=== PATIENT | female | born 1985 | race Caucasian/White ===

== ENCOUNTER → 2019-05-16 13:49 | Outpatient (CLI) | payer OTHER, SELFPAY ==
--- NOTE | ~2019-05-16 | US_ITS ---
EXAMINATION: US OB follow up DATE: 05/16/2019 16:02 INDICATION: Small for gestational age. Third trimester. TECHNIQUE: Real-time ultrasound of the pelvis was performed. COMPARISON: Ultrasound 02/28/2019, 12/19/2018 FINDINGS: There is a single living fetus in vertex presentation. The placenta is anterior. heart rate is 126 beats per minute (bpm). The amniotic fluid index is 11.1 cm, which is normal. The following biometric data were obtained: Biparietal diameter (BPD): 7.8 cm; head circumference (HC): 28.7 cm; abdominal circumference (AC): 26 .5 cm; femur length (FL): 5.8 cm. These measurements are concordant. Estimated weight is 1620 g +/- 243 g, which correlates with 41st percentile when 07/18/19 is use d as estimated date of delivery. As single measurements, these parameters are each equal to the following estimated gestational ages w ith ranges of +/- 2 standard deviations: BPD: 31 weeks 2 days (28 weeks 1 days - 34 weeks 2 days). HC: 31 weeks 4 days (28 weeks 4 days - 34 weeks 4 days). AC: 30 weeks 4 days (27 weeks 5 days - 33 weeks 4 days). FL: 30 weeks 3 days (27 weeks 3 days - 33 weeks 2 days). estimated gestational age based solely on measurements from this exam is 31 weeks 0 days +/- 2 weeks 1 days. IMPRESSION: 1. Single living fetus in vertex presentation. 2. Estimated weight is 1620 g +/- 243 g, which correlates with 41st percentile when 07/18/19 is used as estimated date of delivery. Reviewed, dictated and finalized at location A. IMPRESSION: 1. Single living fetus in vertex presentation. 2. Estimated weight is 1620 g +/- 243 g, which correlates with 41st perc entile when 07/18/19 is used as estimated date of delivery.
== END ==
PROVIDERS: Visit Provider Nurse Practitioner
DX: O26.843 Uterine size-date discrepancy, third trimester (principal); Z3A.31 31 weeks gestation of pregnancy
CPT/HCPCS: 76816

== ENCOUNTER 2019-07-18 00:55 | Inpatient (IN) | payer OTHER, SELFPAY ==
[2019-07-18] VITALS (16 sets, daily range): BP systolic 93–126; BP diastolic 69–88; PULSE 58–114; RESP 16–18; TEMP 36.7–37.1; O2SAT 98–100; BMI 24.2
--- NOTE | 2019-07-18 00:55 | LDADM ---
This patient, Katherine Cox, was admitted to Labor/Delivery/Recovery 106 on 07/18/19 at 00:55. Plans for labor, pain management and were discussed with patient. Patient/family oriented to hospital policies and general routines including ID bracelet, bed and alarms, visiting hours, pain management, procedures, bathroom and other care routines, personal items, smoking policy, room service/diet and guest tray routines, security routines, and visiting hours. Patient/Family are encouraged to report perceived risks to care and to ask questions if they do not understand what they are told or what they should do. See OBIX for further documentation.
[2019-07-18 01:24] LABS: Basophils Percent Auto 0.4 % (0.2-1.2); Eosinophils Absolute Auto 0.1 K/mm3 (0-0.3); Eosinophils Percent Auto 1.1 % (0-4.4); Hemoglobin 13.2 g/dL (12.0-15.0); Immature Granulocyte Absolute 0.03 K/mm3 (0.00-0.031); Immature Granulocyte Percent A 0.4 % (0-0.5); Lymphocytes Absolute Auto 2.75 K/mm3 (0.9-3.2); Lymphocytes Percent Auto 33.9 % (18.3-44.2); Mean Corpuscular HGB Conc 33.8 g/dl (32-36); Mean Corpuscular Hemoglobin 34.1 pg (26-34); Mean Corpuscular Volume 100.8 fl (80-100); Mean Platelet Volume 10.5 fl (7.4-10.4); Monocytes Absolute Auto 0.7 K/mm3 (0.1-0.6); Monocytes Percent Auto 8.4 % (2.6-8.5); Neutrophils Absolute Auto 4.5 K/mm3 (1.3-6.7); Neutrophils Percent Auto 55.8 % (45.5-73.1); Platelet Count Result 185 k/mm3 (150-375); Red Blood Count 3.87 M/mm3 (4.2-5.4); Red Cell Distribution Width 12.2 % (11.5-14.5); White Blood Count 8.1 K/mm3 (4.5-10.0)
[2019-07-18] MEDS: LACTATED RINGERS 1,000 ML 125 ML IV CONT (01:28)
[2019-07-18] MEDS: AMPICILLIN 2 GM/NS 100 ML 2 GM/100 ML BAG IVPB (01:29)
[2019-07-18] MEDS: OXYTOCIN 30 UNITS/NS 500 ML 30 UNITS/500 ML BAG 999 UNITS IV CONT (01:55)
--- NOTE | 2019-07-18 02:02 | WPDOBADMIT ---
Obstetrics - Admit Note Admission Note: AROm clear fluid complete and zero station. record reviewed. No pertinent additions to the history and/or any subsequent changes in the physical findings that are not consistent with the expected course of the were found. Additions to the history and/or subsequent changes in the physical findings follow. None.
--- NOTE | 2019-07-18 02:04 | P.PCNOB_ITS ---
OB - Delivery Note Procedure Delivery date: 07/18/19 Procedure: Intrapartal events: None Induction method: none Delivery monitor: external FHT and external uterine Route of delivery: Laceration description: Perineal - 1st Degree Specimen: No Estimated blood loss (mL): 100 Anesthesia type: None Disposition: floor [place] [facility] Time of : 01:45 Weeks of gestation at delivery: 39 Infant gender: Male Weight (pounds): 7 Weight (ounces): 0 presentation: vertex position: Left Occiput Anterior Placenta delivery description: Spontaneous cord vessel description: 3 Vessels score one minute: 9 score five minutes: 9
[2019-07-18] MEDS: WITCH HAZEL 40 PADS 1 PAD TOPICAL (03:46)
[2019-07-18] MEDS: IBUPROFEN 600 MG TABLET PO ×3 (03:47→17:21)
[2019-07-18] MEDS: LANOLIN (LANSINOH) 7.5 GM CREAM 1 APPLIC TOPICAL (03:51)
--- NOTE | 2019-07-18 04:48 | PC.NURSE ---
This patient, Katherine Cox, was received from Labor and delivery on 07/18/19 at 0427. Personal belongings list checked and signed. Patient/family oriented to unit policies and routines
[2019-07-18] MEDS: MULTIVIT/MIN/PREN/FOL AC/IRON TABLET 1 TAB PO (08:48)
[2019-07-18] MEDS: DOCUSATE SODIUM 100 MG CAPSULE PO ×2 (08:48→17:21)
[2019-07-18] MEDS: BENZOCAINE 20% AER SPR (*SP) 56 GM CAN 1 SPRAY TOPICAL (08:48)
--- NOTE | 2019-07-18 10:55 | PC.NURSE ---
PT introductions made and plan of care discussed per post , pain management, breast feeding, daily care activities.PT verbalized understanding of such instructions.
[2019-07-18 11:20] LABS: Rapid Plasma Reagin Non-Reactive (NonReactive)
--- NOTE | 2019-07-18 16:00 | PC.NURSE ---
Breast pump provided due to mother's request. Instructions given on breast pump care and usage, pumping schedule, nipple care, and collection and storage of breast milk. Encouraged [id number], breast massage and manual expression to stimulate supply. Pumping log provided and reviewed. Reviewed flange size, placement and draw. Patient verbalizes and demonstrates understanding of instructions.
--- NOTE | 2019-07-18 16:19 | PC.NURSE ---
Addendum entered by Doreen Abraham RN 07/18/19 16:22: time 1515 Original Note: Consult with pt., mother reports infant is sleepy and having short feedings. Mother states she can latch correctly without difficulties or discomfort. Infant is hard to keep awake and nursing. had two episodes of spitting up with large mucus and old brown blood. RN assist needed for infant. Demonstrated techniques and bulb syringe use. Suggested to allow to rest 30 minutes before feeding attempt. Requested mother call out for observation of feeding.
--- NOTE | 2019-07-18 16:20 | PC.NURSE ---
Mother called out for assist with feeding. Upon entering mother has to breast with shallow latch. nursed eagerly, with steady draws and frequent swallowing noted. Suggested mother switch to cross cradle holding breast in U hold to assist with deeper latch. Mother prefers to use scissor hold. Reviewed signs of a correct latch, effective nursing and suck swallow ratio. was able to maintain latch with slight tenderness discomfort to mother. Nipple care reviewed. Instructed mother to call out for RN assistance if she is unable to latch for feeding or she has discomfort with nursing. Instructed feeding should be initiated three hours from start of last feeding or if feeding cues are noted before. Mother voiced understanding of information shared. Reviewed transition to breast milk, signs of adequate intake, and engorgement/relief. Instructed to call ICP if intake/output less than required. Reviewed regular medications mother is taking. Information provided per [place]. Reviewed community resources on the [facility] website and in the Mom/Baby guide. Information on outpatient services provided. Mother has no further questions at this time.
[2019-07-19 04:39] LABS: Hematocrit 34.5 % (37.0-47.0); Hemoglobin 11.7 g/dL (12.0-15.0)
[2019-07-19] MEDS: DOCUSATE SODIUM 100 MG CAPSULE PO (09:07)
[2019-07-19] MEDS: MULTIVIT/MIN/PREN/FOL AC/IRON TABLET 1 TAB PO (09:07)
[2019-07-19] MEDS: IBUPROFEN 600 MG TABLET PO ×2 (09:08→20:50)
--- NOTE | 2019-07-19 11:26 | P.PNOB_ITS ---
OB - PN: Subj Subjective Date/time seen: 07/19/19 11:26 Patient comments: no complaints, pain well controlled, tolerating diet and flatus present Horatio baby status: doing well and nursing well feeding status: breast and bottle feeding OB - PN: Obj Data Labs CBC & Chem 7: 07/19/19 04:10 Labs: Laboratory Results - last 24 hr 07/19/19 04:10 Hgb 11.7 L Hct 34.5 L OB - PN A/P Plan day: 1 Plan: routine care, discharge home (tomorrow) and follow up 6 weeks Comments: Desires to be circumcised. Procedure discussed in detail as well as risk i.e infection, bleeding, injury to penis. pt voiced verbalized. informed consent obtained Time Spent With Patient Time: Total time spent is greater than 50% in coordination of care (as documented) at patient's floor/unit and/or counseling patient: Time with patient: 15 - 25 minutes Review of Systems Constitutional: Constitutional: Reports no additional constitutional complaints Cardiovascular: Cardiovascular: Reports no additional cardiovascular complaints Respiratory: Respiratory: Reports no additional respiratory complaints Gastrointestinal: Gastrointestinal: Reports no additional gastrointestinal complaints Genitourinary: Genitourinary: Reports no additional female genitourinary complaints Exam Const: General: comfortable, no acute distress, alert and awake Resp: Effort & Inspection: normal respiratory effort Auscultation: clear to auscultation bilaterally Cardio: Rate: regular rate GI: Auscultation: normal bowel sounds
[2019-07-19 12:00] VITALS: BP 98/70; PULSE 72; RESP 18; TEMP 37; O2SAT 98
[2019-07-19 20:50] VITALS: BP 112/72; PULSE 69; RESP 18; TEMP 36.8; O2SAT 100
[2019-07-20 07:20] VITALS: BP 112/80; PULSE 64; RESP 18; TEMP 36.6; O2SAT 100
[2019-07-20] MEDS: MULTIVIT/MIN/PREN/FOL AC/IRON TABLET 1 TAB PO (07:48)
[2019-07-20] MEDS: IBUPROFEN 600 MG TABLET PO (07:48)
[2019-07-20] MEDS: WITCH HAZEL 40 PADS 1 PAD TOPICAL (12:18)
[2019-07-22 09:58] VITALS: BP 101/74; PULSE 85; RESP 16; TEMP 36.7; O2SAT 99
--- NOTE | 2019-07-30 11:40 | PM.DS ---
DS: Admitting Diagnosis Admitting Diagnosis Admitting Diagnosis: Encounter for supervision of normal , unspecified, third trimester DS: Summary Time Spent with Patient Time attestation: Total time spent providing and/or coordinating discharge services: Exam GI: GI Palp: Yes Soft to palpation Discharge Plan Discharge Consulting providers: Court Calles Discharging Clinician: Lynn Ortiz Anticipated Discharge Date/Time: 07/20/19 08:00 Patient Disposition: Home, Self-Care Activity: as tolerated and pelvic rest Diet: regular Discharge Instructions: Education: Mom and Baby Guide Given to: Mother Follow-Up: Call your delivering provider's office for an appointment to be seen in: call for appointment Mom and baby should come to the [facility] for the follow-up appointment. Appointment Date/Time: July 22, 2019 at 10:00 am What to expect at your follow-up visit: Blood Pressure Check Physical Assessment Call [phone] if you are unable to keep your appointment time. BREAST CARE: 1. Wear a snug supportive bra. 2. For engorgement discomfort: Breast Feeding: A. Apply warm moist washcloths B. Express milk as needed to relieve engorgement C. Wear loose clothing 3. For sore nipples: A. Identify correct latch-on B. Apply warm moist washcloths before and after nursing C. Air dry nipples after nursing D. May apply Lansinoh cream to nipples EPISIOTOMY/PERINEAL CARE: 1. Until bleeding stops, use your jaylen bottle after urinating 2. Change your pad frequently throughout the day 3. You may take sitz baths several times a day (fill your bathtub with warm water and soak for 20 minutes.) Do NOT bathe in the water 4. No tub baths until seen by your physician - You may shower ACTIVITY: 1. Rest as much as possible. 2. Do not exercise or lift anything heavier than your baby (such as laundry or other children.) 3. Avoid stairs or driving as much as possible. 4. Do not put anything into the vagina. No douching, tampons, or sexual activity until seen by physician. NOTIFY PHYSICIAN IF YOU HAVE ANY QUESTIONS OR IF ANY OF THE FOLLOWING SYMPTOMS OCCUR: 1. If your perineum becomes red, swollen, or more painful than what you have experienced in the hospital. 2. If your vaginal bleeding becomes foul smelling. 3. If your vaginal bleeding becomes more heavy than a period or if your bleeding changes from pink to bright red. However, you may pass an occasional walnut-sized clot once or twice for the first week . 4. If you experience a sharp, shooting pain in you calves. 5. If you discover a hard, reddened area on your breast or if you experience flu-like symptoms. 6. Temperature of 100.4 or higher DIET: 1. Eat regular, well-balanced meals. 2. Drink plenty of fluids daily. If , drink to thirst. Stand Alone Forms: General Discharge Information Follow-up/Referrals: Charles Auguste MD [Physician] - Call for Appointment Discharge Medications: New docusate sodium 100 mg Capsule 100 mg PO BID PRN (Reason: Constipation) Qty: 60 RF: 0 ibuprofen 600 mg Tablet 600 mg PO Q6H PRN (Reason: Cramping) Qty: 60 RF: 0 ergocalciferol (vitamin D2) [Vitamin D2] 1,250 mcg (50,000 unit) capsule 1,250 mcg PO WEEKLY Qty: 12 RF: 1 Continued ergocalciferol (vitamin D2) [Vitamin D2] 1,250 mcg (50,000 unit) Capsule 1,250 mcg PO WEEKLY RF: 0 PNV cmb#[id number]-ferrous fumarate-FA [] 28 mg iron- 800 mcg Tablet 1 tablet PO DAILY RF: 0 Date of admission: 07/18/19 00:55 Primary Care Provider: PHYSICIAN,CASH TELLER Admitting Provider: Charles Auguste Discharge Date/Time: 07/20/19 14:00 Attending physician on admission: Lynn Ortiz
== END 2019-07-20 14:00 | disposition home or self-care (01) | DRG 807 ==
LOC: ANHLDR 01:19 → ANHOB2 07-19 11:31 → ANHLDR 07-23 06:50 → ANHOB2 07-23 06:50
PROVIDERS: Admitting Provider Obstetrics & Gynecology; Visit Provider Obstetrics & Gynecology
DX: O99.824 Streptococcus B carrier state complicating childbirth (principal); Z37.0 Single live birth; O70.0 First degree perineal laceration during delivery; Z3A.39 39 weeks gestation of pregnancy
CPT/HCPCS: 36415; 85014; 85018; 85025; 86592; 86850; 86900; 86901; A9270; J0290; J2590; J7120

== ENCOUNTER 2022-11-21 09:19 | Outpatient (CLI) | payer OTHER, SELFPAY ==
--- NOTE | ~2022-11-21 | MMUS_ITS ---
EXAMINATION: MM diagnostic bobbi BI w adwoa, US breast BI limited HISTORY: Left breast pain TECHNIQUE: Craniocaudal, mediolateral, and mediolateral oblique 3-D tomosynthesis images of the breas ts were performed and synthetic 2-D images were generated. CAD analysis was submitted and interpreted . High resolution limited bilateral breast ultrasound was performed. COMPARISON: None, baseline BREAST PARENCHYMAL COMPOSITION: The breasts are heterogeneously dense, which may obscure small masses . FINDINGS: MAMMOGRAPHIC FINDINGS: No mammographic correlate is identified for the patient's reported left breast pain. There is a 7 mm low-density obscured, oval mass in the posterior third of the upper outer quadrant of the right breas t 5.5 cm from the nipple. ULTRASOUND: Right breast: There is a 1.5 x 0.6 cm oval, circumscribed, parallel, hypoechoic mass with no posterio r features or internal vascularity at the 10:00 location, 5 cm from the nipple. There is a 1.1 x 0.4 cm mass with similar sonographic features at the 12:00 location, 4 cm from the nipple. A 5 mm round m ass with otherwise similar sonographic features is present at the 9:00 location, 5 cm from the nipple . Left breast: No sonographic correlate is identified for the patient's reported left breast pain. IMPRESSION: 1. No specific mammographic or sonographic correlate is identified for the patient's reported left br east pain Further evaluation at this time should be based on clinical assessment. Continued follow-up physical examination is recommended. 2. Recommend 6 month follow-up right breast ultrasound for probably benign right breast masses. BI-RADS category 3, probably benign findings. Reviewed, dictated and finalized at location A. IMPRESSION: 1. No specific mammographic or sonographic correlate is identified for the ranjana ent's reported left breast pain Further evaluation at this time should be based on clinical assessment. Continued follow-up physical examination is recommende d. 2. Recommend 6 month follow-up right breast ultrasound for probably benign righ t breast masses. BI-RADS category 3, probably benign findings.
== END 2022-11-21 09:20 ==
PROVIDERS: PCP Nurse Practitioner; Visit Provider Nurse Practitioner
DX: N64.4 Mastodynia (principal); R92.8 Other abnormal and inconclusive findings on diagnostic imaging of breast
CPT/HCPCS: 76642; 77062; 77066; G0279

== ENCOUNTER 2023-05-23 09:15 | Outpatient (CLI) | payer OTHER, SELFPAY ==
--- NOTE | ~2023-05-23 | US_ITS ---
US breast RT limited INDICATION: Follow-up right breast masses TECHNIQUE: Dedicated Limited right breast ultrasound COMPARISON: 11/21/2022 FINDINGS: At 9:00, 5 cm from the nipple there is a bilobed 5 x 4 x 4 mm hypoechoic mass with internal septation, no internal vascularity and no posterior features, stable. At 10:00, 5 cm from the nipple there is an enlarging hypoechoic parallel oriented mass measuring 2.1 x 1.5 x 0.6 cm compared with 1 .4 x 1.2 x 0.6 cm on prior examination. No posterior features or internal vascularity. At 12:00, 4 cm from the nipple there is a stable oval parallel oriented hypoechoic mass measuring 1.2 x 1 x 0.4 cm, not significantly changed from prior examination. IMPRESSION: 1: Enlarging 2.1 cm right breast mass located at 10:00, 5 cm from the nipple. BI-RADS CATEGORY 4-SUSPICIOUS ABNORMALITY RECOMMENDATION: Ultrasound-guided right breast biopsy recommended. Reviewed, dictated and finalized at location A.
== END 2023-05-23 09:16 ==
LOC: MICIMG 09:16
PROVIDERS: PCP Obstetrics & Gynecology Gynecology; Visit Provider Obstetrics & Gynecology Gynecology
DX: N63.10 Unspecified lump in the right breast, unspecified quadrant (principal); R92.8 Other abnormal and inconclusive findings on diagnostic imaging of breast
CPT/HCPCS: 76642

== ENCOUNTER 2023-11-20 09:21 | Outpatient (CLI) | payer OTHER, SELFPAY ==
--- NOTE | ~2023-11-20 | US_ITS ---
US breast RT limited 11/20/2023 09:34 Indication: Follow-up fibroadenoma previously biopsied at [facility] Procedure: High-resolution Limited ultrasound of the right breast Comparison: Ultrasound dated 05/23/2023 Findings: At 10:00, 5 cm from the nipple there is an oval circumscribed hypoechoic mass measuring 1.8 x 1.1 x 0.7 cm with internal calcifications, no significant posterior features or internal vasculari ty, slightly decreased in size compared with prior examination when it measured 2.1 x 1.5 x 0.6 cm. Impression: 1: Decreased size of right breast mass at 10:00, 5 cm from the nipple, now measuring 1.8 x 1.1 x 1.7 cm. 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 Routine yearly screening mammogram and regular clinical breast examination are recommended. BI-RADS CATEGORY 2 - BENIGN FINDINGS Reviewed, dictated and finalized at location B. Impression: 1: Decreased size of right breast mass at 10:00, 5 cm from the nipple, now ashleigh uring 1.8 x 1.1 x 1.7 cm. This was reportedly previously biopsy-proven benign f ibroadenoma by outside institution. Routine yearly screening mammogram and regular clinical breast examination are recommended. BI-RADS CATEGORY 2 - BENIGN FINDINGS
== END 2023-11-20 09:22 | disposition home or self-care (01) ==
LOC: MICIMG 09:22
PROVIDERS: PCP Obstetrics & Gynecology Gynecology; Visit Provider Surgery
DX: N63.11 Unspecified lump in the right breast, upper outer quadrant (principal)
CPT/HCPCS: 76642